=== PATIENT | male | born 1960 | race Caucasian/White ===

== ENCOUNTER 2016-11-30 05:22 | Observation (INO) | payer BC, OTHER ==
[~2016-11-30] VITALS: Ht 188 cm; Wt 88.5 kg
--- NOTE | ~2016-11-30 | O ---
[facility] [place] [address] OPERATIVE REPORT Name: ZOE DURÁN Room #: 439-P [facility] M..#: [id number] Admission: 11/30/16 Attend Phys: Shukri Keith MD Discharge: Date of : 60 Report #: [id number] THIS REPORT FOR: //name// CC: Shukri Marquez MD DATE OF SERVICE: 11/30/2016 PREOPERATIVE DIAGNOSIS: Incisional hernia. POSTOPERATIVE DIAGNOSIS: Incisional hernia. PROCEDURES PERFORMED: Laparoscopic repair of incisional hernia. ANESTHESIA: General. SURGEON: Shukri Keith M.D. ESTIMATED BLOOD LOSS: 100 mL. COMPLICATIONS: Bleeding from the left inferior epigastric artery controlled with suture ligature. DESCRIPTION OF PROCEDURE: With the patient under general anesthesia, abdomen is prepped and draped in sterile fashion. IV antibiotic was administered. A 0.25% Marcaine was used to anesthetize the skin and subcutaneous tissue. A 2 cm incision was made laterally on the left side. An open cutdown incision with open cutdown port placement was performed. The anterior rectus sheath was identified and opened under visualization, 0 Vicryl suture placed on the fascia for retraction, muscle was spread. The posterior sheath was then grasped and opened up. Again, 0 Vicryl suture placed on the posterior sheath for retraction. Abdominal cavity was visualized, the 11 mm trocar was placed directly under visualization. The balloon was inflated. CO2 was placed. A 5 mm trocar was placed in the left lateral abdomen in the upper quadrant, second 5 mm trocar left lower quadrant laterally. These were placed under visualization. No harm to the surrounding tissue. The patient did have an incisional hernia. There was omental fat that was adherent to this. The fat was dissected off the hernia sac. This was performed with Harmonic scalpel. There was an adhesive band that was able to be retrieved easily, the old mesh was identified. The falciform ligament had to be free superiorly. There is properitoneal fat inferiorly. I went ahead and freed that up. This allowed room for the mesh. The fascial defect is about 3 cm. There is also weakness of the wall. The mesh material was identified inferior to the defect. Total defect is about 5 cm. A 6-inch Ventralight with ST technology and Echo system was used. This was placed through the 11 mm trocar without difficulty. This was then orientated. A [facility] [address] [place] [address] OPERATIVE REPORT Name: ZOE DURÁN Room #: 439-P [facility] Jessie Cavanaugh#: [id number] Admission: 11/30/16 Attend Phys: Shukri Keith MD Discharge: Date of : 60 Report #: [id number] 2 mm incision was made above the hernia sac. A suture retriever was placed through this. This then pulled out the balloon part of the Ventralight mesh and was trimmed off and the air balloon was then inflated. The clamp was placed. The mesh was seated underneath the defect extending at about 5 cm in all directions. SorbaFix was then placed along the circumferential mesh plus also internally. Stay suture was placed at the 9, 12, and 6 o'clock position and then at 3 o'clock position. CVL [place]-Tj suture was used. The suture retriever was placed through the abdominal wall adjacent to the mesh grabbing one suture through the same skin; through the same 2 mm skin incision, the needle was guided more medially towards the mesh and going through the mesh. This grabbed the other end of the suture, the knot was then tied down. On the 3 o'clock position, the needle went through the inferior epigastric artery. A small 2 mm incision was then made about 1.5 cm inferiorly and the suture retriever was then used to pull up 0 PDS suture and this then cinched up and stopped the bleeding from the inferior epigastric artery. The irrigation was performed removing all the blood that was present. Copious irrigation was used to get rid of all the blood that is in the abdomen. After the suture was placed, no further bleeding was seen. The CO2 was evacuated, trocar was then removed. The fascial defect at the cutdown site was closed with 0 PDS [id number] times 2 posterior layer and then 0 PDS [id number] in the anterior rectus sheath. Skin was irrigated, closed with 5-0 PDS. There was a small hematoma under the skin, but this also did not increase in size during the rest of the procedure. Dermabond was applied. Band-Aid was used. Abdominal binder was placed and the patient was taken to recovery room. By: [id number] Shukri Keith MD /nt
--- NOTE | ~2016-11-30 | EKG ---
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
[~2016-11-30 05:22] MED LIST: FISH OIL 1,001000 M2 PO; GLUCOSAMINE CH1 EAC2 PO; HYDROCHLOROTHIA25 M2 PO; IBUPROFEN 600600 M1 PO; MULTIVITAMINS1 EAC7 PO
[2016-11-30 07:05] VITALS: BP 140/94
[2016-11-30 07:35] LABS: HEMATOCRIT 46.1 % (42.0-52.0); HEMOGLOBIN 15.9 gm/dL (14.0-18.0)
[2016-11-30 12:55] VITALS: BP 138/95
[2016-11-30 16:27] VITALS: BP 148/93
[2016-11-30 21:20] VITALS: BP 132/86
[2016-12-01 03:30] VITALS: BP 129/86
[2016-12-01 05:45] LABS: HEMATOCRIT 41.5 % (42.0-52.0); MCH 29.7 pg (26.0-34.0); MCHC 33.4 g/dL (28.0-37.0); MCV 88.9 fL (80.0-100.0); RBC 4.68 mil/uL (4.50-6.00); RDW 13.4 % (10.5-14.5); WBC 12.3 thou/uL (4.0-11.0)
[2016-12-01 05:52] LABS: HEMOGLOBIN 13.9 gm/dL (14.0-18.0)
[2016-12-01 08:00] VITALS: BP 133/93
[2016-12-01] MEDS ORDERED: VALIUM5 MG PO (11:18)
[2016-12-01] MEDS ORDERED: NORCO 5-325 TA1 EACH PO (11:18)
[2016-12-01 11:52] VITALS: BP 133/93
[2016-12-01 12:12] VITALS: BP 131/92
[2016-12-01 12:47] VITALS: BP 133/93
== END 2016-12-01 12:51 | disposition home or self-care (01) ==
LOC: TBA 05:22 → OR 05:22 → 4S 12:52 → OR 12-01 10:59 → 4S 12-01 12:51 → OR 12-01 13:29
PROVIDERS: Surgery
DX: K43.2 Incisional hernia without obstruction or gangrene (principal)
CPT/HCPCS: 50010; 50101; 50411; 50455; 50555; 50687; 50886; 50978; 51489; 53307; 53335; 54022; 54118; 56525; 56526; 56530; 62110; 62900; 70005